=== PATIENT | male | born 1955 | race Asian ===

== ENCOUNTER 2021-11-08 12:44 | Outpatient (REF) | payer MEDICARE, SELFPAY ==
[2021-11-08 13:55] LABS: MANUAL DIFF FLAG NO
[2021-11-08 14:02] LABS: Basophils Percent Auto 0.2 % (0-2); Eosinophils Absolute Auto 0.1 X10*3/uL (0.0-0.4); Eosinophils Percent Auto 1.6 % (0-4); Hematocrit 39.7 % (42.0-52.0); Hemoglobin 13.4 g/dl (14.0-18.0); Imm Gran Abs Auto 0.04 X10*3/uL (0.00-0.03); Imm Gran Pct Auto 0.6 % (0.0-0.4); Lymphocytes Absolute Auto 1.6 X10*3/uL (1.2-4.9); Lymphocytes Percent Auto 25.1 % (20-40); Mean Corpuscular HGB Conc 33.8 g/dl (31.0-36.0); Mean Corpuscular Hemoglobin 29.8 pg (27.0-33.0); Mean Corpuscular Volume 88.4 fL (80.0-98.0); Mean Platelet Volume 11.1 fL (9.4-12.4); Monocytes Absolute Auto 0.7 X10*3/uL (0.1-1.2); Monocytes Percent Auto 10.2 % (2-11); Neutrophils Percent Auto 62.3 % (45-73); Platelet Count 252 X10*3/uL (160-400); Red Blood Count 4.49 X10*6/uL (4.60-5.80); Red Cell Distribution Width 12.7 % (11.0-16.0); White Blood Count 6.4 X10*3/uL (4.8-10.8)
[2021-11-08 14:12] LABS: Estimated Average Glucose 169 mg/dL; Hemoglobin A1c % 7.5 %
[2021-11-08 14:30] LABS: Alanine Aminotransferase 28 U/L (0-40); Albumin Level 4.2 g/dL (3.5-5.0); Alkaline Phosphatase 66 U/L (39-117); Anion Gap 13 (12-20); Aspartate Amino Transferase 22 U/L (5-37); Bilirubin Total 0.6 mg/dL (0.0-1.0); Blood Urea Nitrogen 15 mg/dL (9-16); Calcium 9.6 mg/dL (8.4-10.2); Carbon Dioxide 28 mmol/L (22-29); Chloride 100 mmol/L (96-108); Estimated Glomerular Filt Rate 54; Glucose Random 175 mg/dL (60-115); Potassium 3.3 mmol/L (3.3-5.1); Sodium 138 mmol/L (135-145); Total Protein 7.5 g/dL (6.5-8.0)
== END 2021-11-08 12:45 | disposition home or self-care (01) ==
LOC: HO.10HDL 12:44
PROVIDERS: Visit Provider Internal Medicine
DX: E11.65 Type 2 diabetes mellitus with hyperglycemia (principal); I12.9 Hypertensive chronic kidney disease with stage 1 through stage 4 chronic kidney disease, or unspecified chronic kidney disease; N18.9 Chronic kidney disease, unspecified; K62.5 Hemorrhage of anus and rectum
CPT/HCPCS: 36415; 80053; 83036; 85025

== ENCOUNTER 2021-11-12 08:55 | Day surgery (SDC) | payer MEDICARE, SELFPAY ==
--- NOTE | 2021-11-11 09:09 | HO.ANESPROP2 ---
Documented by User: Chloe Cope NP 11/11/21 09:10 HPI - Anesthesia Eval Consult details Narrative: 66yo M for Colonoscopy [facility] Past Medical History Medical History (Updated 11/12/21 @ 09:44 by Nuris Cruz, OVI) Back pain Chronic renal insufficiency HTN (hypertension) NIDDY (non-insulin dependent diabetes mellitus in young) Ptosis Umbilical hernia Surgical History Surgical History H/O umbilical hernia repair History of vitrectomy Social History Social History Are you DNR?: Yes Advance Directives: No Advance Directives Information Provided: Yes Meds Allergies Allergy/AdvReac Type Severity Reaction Status Date / Time FUENTES Inhibitors Allergy Unknown Verified 11/12/21 09:52 Home Medications Medication Instructions Recorded Confirmed Last Taken Type amlodipine 10 mg tablet 1 tab PO DAILY 11/11/21 11/11/21 Unknown History atorvastatin 10 mg tablet 1 tab PO BEDTIME 11/11/21 11/11/21 Unknown History glimepiride 1 mg tablet 1 tab PO DAILY 11/11/21 11/11/21 Unknown History glipizide 5 mg tablet, extended 1 tab PO DAILY 11/11/21 11/11/21 Unknown History release 24 hr hydrochlorothiazide 25 mg tablet 1 tab PO DAILY 11/11/21 11/11/21 Unknown History losartan 100 mg tablet 1 tab PO DAILY 11/11/21 11/11/21 Unknown History losartan 100 1 tab PO DAILY 11/11/21 11/11/21 Unknown History mg-hydrochlorothiazide 25 mg tablet metformin 500 mg tablet 1 tab PO BID 11/11/21 11/11/21 Unknown History metoprolol succinate 50 mg 1 tab PO DAILY 11/11/21 11/11/21 Unknown History tablet,extended release 24 hr naproxen 500 mg tablet 1 tab PO BID 11/11/21 11/11/21 Unknown History Exam Exam Date and Time: November 11, [id number] Pertinent Lab Results Pertinent Lab Results: Laboratory Tests 11/08/21 11/08/21 12:54 12:54 WBC 6.4 Hgb 13.4 L Hct 39.7 L Plt Count 252 Sodium 138 Potassium 3.3 Chloride 100 Carbon Dioxide 28 BUN 15 Creatinine 1.32 Assessment and Plan Assessment Anesthesia Assessment: Chart Reviewed Documented by User: Gage Ni MD 11/12/21 11:22 [facility] Past Medical History Medical History (Updated 11/12/21 @ 09:44 by Nuris Cruz, OVI) Back pain Chronic renal insufficiency HTN (hypertension) NIDDY (non-insulin dependent diabetes mellitus in young) Ptosis Umbilical hernia Family History Family history of problems with anesthesia: No Surgical History Surgical History H/O umbilical hernia repair History of vitrectomy History of Problems with Anesthesia: No Social History Social History Are you DNR?: Yes Advance Directives: No Advance Directives Information Provided: Yes Meds Allergies Allergy/AdvReac Type Severity Reaction Status Date / Time FUENTES Inhibitors Allergy Unknown Verified 11/12/21 09:52 Home Medications Medication Instructions Recorded Confirmed Last Taken Type amlodipine 10 mg tablet 1 tab PO DAILY 11/11/21 11/11/21 Unknown History atorvastatin 10 mg tablet 1 tab PO BEDTIME 11/11/21 11/11/21 Unknown History glimepiride 1 mg tablet 1 tab PO DAILY 11/11/21 11/11/21 Unknown History glipizide 5 mg tablet, extended 1 tab PO DAILY 11/11/21 11/11/21 Unknown History release 24 hr hydrochlorothiazide 25 mg tablet 1 tab PO DAILY 11/11/21 11/11/21 Unknown History losartan 100 mg tablet 1 tab PO DAILY 11/11/21 11/11/21 Unknown History losartan 100 1 tab PO DAILY 11/11/21 11/11/21 Unknown History mg-hydrochlorothiazide 25 mg tablet metformin 500 mg tablet 1 tab PO BID 11/11/21 11/11/21 Unknown History metoprolol succinate 50 mg 1 tab PO DAILY 11/11/21 11/11/21 Unknown History tablet,extended release 24 hr naproxen 500 mg tablet 1 tab PO BID 11/11/21 11/11/21 Unknown History Exam Airway Mallampati Class: IV TM Dist: >3cm Neck ROM: Limited Loose/Missing/Broken Teeth: Yes Heart: rrr Lungs: bl breath sounds Assessment and Plan Assessment Anesthesia Assessment: Anesthesia Plan Discussed (Se seismic interpreter ) Final Anesthetic Review Family History of Problems with Anesthesia: No History of Problems with Anesthesia: No NPO: Yes ASA Class: III Final Preanesthetic Review: Meds/Allgs Chart Reviewed, Consent Obtained/Reviewed (Se seismic interpreter ) and Anes Risks/Benef Reviewed Patient Risk: Intermediate Procedure Risk: Intermediate Anesthetic Plan Anesthetic Plan: MAC: Disposition: Standard PACU
[2021-11-12 09:15] VITALS: BMI 29.7
[2021-11-12 09:36] VITALS: BP 149/85; PULSE 87; RESP 18; TEMP 36.9; O2SAT 100
[2021-11-12] MEDS: Lactated Ringers 1,000 ML 100 ML IVCONT (09:59)
[2021-11-12 10:04] LABS: Glucose, Whole Blood 138 mg/dL (60-115)
[2021-11-12 10:54] VITALS: BP 109/64; PULSE 83; RESP 14; TEMP 36.3; O2SAT 97
--- NOTE | 2021-11-12 10:58 | PM.OP ---
Brief Operative Note Date of Service: 11/12/21 Pre-op diagnosis: Rectal bleeding Post-op diagnosis: other (Appendiceal orifice polyp, Internal/External hemorrhoids) Procedure: Colonoscopy to the cecum with biopsy and removal of polyp Surgeon: Wets Christie Anesthesia: MAC Was an Shape Brick Molder used for this Procedure?: No Estimated blood loss (mL): 2.0 Pathology: other (A. Appendiceal orifice polyp) Condition: stable Disposition: PACU
[2021-11-12 11:09] VITALS: BP 125/83; PULSE 84; RESP 18; TEMP 36.3; O2SAT 99
--- NOTE | 2021-11-12 12:21 | OP_ITS ---
SURGEON: West Christie MD INDICATIONS: The patient presents for evaluation of hematochezia. Full consent was obtained from him for this, including risks of bleeding and perforation. PREOPERATIVE DIAGNOSIS: Hematochezia. POSTOPERATIVE DIAGNOSIS: PROCEDURE PERFORMED: Colonoscopy to the cecum with biopsy and removal of polyp. ESTIMATED BLOOD LOSS: COMPLICATIONS: ANESTHESIA: Monitored anesthesia care. ASSISTANTS: SPECIMENS: POSTOPERATIVE DIAGNOSES: Hematochezia, internal and external hemorrhoids, diverticulosis, appendiceal orifice polyp. DESCRIPTION OF PROCEDURE: The patient was placed in the left lateral decubitus position. The digital rectal exam revealed some external hemorrhoidal tissue. There was no palpable mass. The Olympus video pediatric colonoscope was entered into the rectum and advanced easily to the cecum. Once in the cecum, I did identify cecal pouch with appendiceal orifice and normal-appearing ileocecal valve. The entire cecum was well visualized, although there was a small amount of stool, which was irrigated and suctioned away as best as possible. In the appendiceal orifice was a several mm polyp right at the opening. When grabbed with cold biopsy forceps, there did not appear to be any polyp tissue beyond it and was not on a stalk. I was able to remove the polyp completely with the cold biopsy forceps and recovered the polyp by suction. Post polypectomy, there did not appear to be any residual polyp nor any significant bleeding. The scope was slowly withdrawn assessing all mucosal surfaces carefully. For the most part, preparation was very good throughout the colon, although the left colon did have some solid stool, which was irrigated and moved away as best as possible. I did not visualize any other polyps, colitis, nor angiodysplasia. There was a mild amount of sigmoid diverticulosis. In the rectum, the scope was retroflexed visualizing internal hemorrhoids, but no other pathology. The rectal mucosa appeared normal. The scope was straightened and withdrawn from the patient. He tolerated the procedure well and was returned to recovery area in stable condition. IMPRESSION: 1. Appendiceal orifice polyp, status post removal with cold biopsy forceps. 2. Diverticulosis. 3. Internal and external hemorrhoids. PLAN: The results of the pathology will be checked. If the appendiceal orifice polyp is a tubular adenoma, I would recommend a repeat colonoscopy in 1-2 years to reinspect the area. If it is only hyperplastic and/or inflammatory, I would recommend a repeat colonoscopy in 5 years given the somewhat limited prep in the left colon. He was advised not to use any aspirin and NSAIDs for 1 week. He does report that he has not had any bleeding over the past several days. Based on today's findings it does appear that his recent bleeding was due to his hemorrhoids. He can use symptomatic treatment for them with Preparation H or Anusol cream or suppositories. If they become problematic and refractory to medical therapy he would need a surgical referral to Dr. Lamb. He has been given instructions in this regard. MD BRUCE Haynes/DARYL / [id number] MTDD
== END 2021-11-12 11:52 | disposition home or self-care (01) ==
PROVIDERS: PCP Internal Medicine; Visit Provider Internal Medicine
PROC: 0DJD8ZZ Inspection of Lower Intestinal Tract, Via Natural or Artificial Opening Endoscopic (ICD-10-PCS; CPT 45378; principal; 2021-11-12 15:10)
DX: K62.5 Hemorrhage of anus and rectum (principal); D12.1 Benign neoplasm of appendix; K57.30 Diverticulosis of large intestine without perforation or abscess without bleeding; K64.8 Other hemorrhoids; K64.4 Residual hemorrhoidal skin tags; E11.22 Type 2 diabetes mellitus with diabetic chronic kidney disease; I12.9 Hypertensive chronic kidney disease with stage 1 through stage 4 chronic kidney disease, or unspecified chronic kidney disease; N18.9 Chronic kidney disease, unspecified; H02.402 Unspecified ptosis of left eyelid; Z79.84 Long term (current) use of oral hypoglycemic drugs; Z79.899 Other long term (current) drug therapy
CPT/HCPCS: 45380; 82947; 88305